=== PATIENT | female | born 1955 | race Caucasian/White ===

== ENCOUNTER 2016-07-30 10:34 | Emergency (ER) | payer OTHER ==
[~2016-07-30] VITALS: Ht 165.1 cm; Wt 104.3 kg
[~2016-07-30 10:34] MED LIST: ADVIL200 M2 PO; BAYER GENUINE325 MG PO; EPIPEN 2-P0.3 MG/0.3; LEVOTHYROXINE112 MCG PO; LOPRESSOR50 M1 PO; OMEPRAZOLE20 M2 PO; PAROXETINE HCL30 M1 PO; PLAVIX75 M1 PO; PRINIVIL5 M1 PO; WELCHOL625 MG PO
[2016-07-30 10:38] VITALS: BP 153/82
--- NOTE | 2016-07-30 11:21 | ED HAND/WRIST INJURY COMPLAINT ---
History of Present Illness General Chief Complaint: Hand or Wrist Injury Stated Complaint: L HAND INJURY S/P FALL YEST Source: patient Exam Limitations: no limitations Vital Signs & Intake/Output Vital Signs & Intake/Output Vital Signs Date Time Temp Pulse Resp B/P B/P Pulse O2 O2 Flow FiO2 Mean Ox Delivery Rate 07/30 1038 97.3 64 20 153/82 98 Room Air Allergies Coded Allergies: naproxen (Severe, RASH 07/30/16) cefuroxime (From CEFTIN) (RASH 07/30/16) Reconcile Medications Clopidogrel Bisulfate (Plavix) 75 MG TABLET 1 TAB PO DAILY BLOOD THINNER ( Reported) Colesevelam Hydrochloride (Welchol) 625 MG TABLET 3 TAB PO BID CHOLESTEROL ( Reported) Cyanocobalamin (Vitamin B-12) (B-12) 5,000 MCG TAB.RAPDIS 1 TAB PO DAILY VITAMIN SUPPORT (Reported) Epinephrine (Epipen 2-Ben) 0.3 MG/0.3 ML AUTO.INJCT 1 INJ DAILY NEEDED PRN ALLERGIES (Reported) Ibuprofen (Advil) 200 MG TABLET 1 TAB PO BID PAIN (Reported) Levothyroxine Sodium 112 MCG TABLET 1 TAB PO DAILY AC THYROID (Reported) Lisinopril (Prinivil) 5 MG TABLET 1 TAB PO DAILY BP (Reported) Losartan Potassium 25 MG TABLET 1 TAB PO DAILY HEART (Reported) Metoprolol Tartrate (Lopressor) 50 MG TABLET 1 TAB PO DAILY HEART (Reported) Omeprazole 20 MG CAPSULE.DR 1 CAP PO DAILY GI (Reported) Paroxetine HCl 30 MG TABLET 1 TAB PO DAILY MENTAL HEALTH (Reported) Triage Note: TRIPPED OVER CURB YESTERDAY FALLING ONTO LEFT HAND. PT DENIES HITTING HEAD, DENIES LOC Triage Nurses Notes Reviewed? yes Occurred: yesterday Duration: day(s): (1), constant, continues in ED Timing: recent history Injury Environment: home Severity: moderate, severe Pain/Injury Location: Left: Wrist, Hand. Method of Injury: fall No Modifying Factors: none HPI: 61-year-old female comes into emergency room for further evaluation of left hand and wrist pain. Patient fell yesterday when trying to step over handicap curve. Fell on her left hand. Denies any head trauma. Small bruise to her left lower leg but does not have any other injury on her body. No neck pain. No loss of consciousness. No anticoagulants. Denies any other associated symptoms. (TANA BELL) Past History Travel History Traveled to [place] past 21 day No Medical History Any Pertinent Medical History? 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 No (TANA BELL) Review of Systems Review of Systems Constitutional: Reports: no symptoms. EENTM: Reports: no symptoms. Respiratory: Reports: no symptoms. Cardiovascular: Reports: no symptoms. GI: Reports: no symptoms. Genitourinary: Reports: no symptoms. Musculoskeletal: Reports: see HPI. Skin: Reports: no symptoms. Neurological/Psychological: Reports: no symptoms. Hematologic/Endocrine: Reports: no symptoms. Immunologic/Allergic: Reports: no symptoms. All Other Systems: Reviewed and Negative (TANA BELL) Physical Exam Physical Exam General Appearance: well developed/nourished, mild distress Head: atraumatic Eyes: Bilateral: normal appearance. Ears, Nose, Throat: normal ENT inspection, hearing grossly normal Neck: normal inspection Cardiovascular/Respiratory: no respiratory distress Back: normal inspection Wrist Left: soft tissue tenderness, limited range of motion Hand Left: limited range of motion Hand Right: normal inspection Neurologic/Tendon: normal sensation, normal motor functions, normal tendon functions, responds to pain, no evidence tendon injury Skin: intact, normal color, warm/dry Lymphatic: no anterior cervical fantasma (TANA BELL) Progress Differential Diagnosis: abscess, cellulitis, contusion, dislocation, felon, fracture, paronychia, septic arthritis, sprain, tenosynovitis Plan of Care: Orders Procedure Date/time Status Durable Medical Equipment 07/30 1124 Active Diagnostic Imaging: Viewed by Me: Radiology Read. Discussed w/RAD: Radiology Read. Radiology Impression: EXAM TYPE: RAD - XRY-HAND, LEFT; XRY-WRIST COMPLETE-LEFT EXAMINATION: XR HAND, LEFT XR WRIST, LEFT CLINICAL INFORMATION: Trauma. Pain. Patient fell on arm, lateral portion. Rule out fracture COMPARISON: None TECHNIQUE: AP, lateral, and oblique views of the left hand and AP, lateral, oblique, and scaphoid views of the left wrist. FINDINGS: LEFT HAND: Bones are osteopenic. No acute fracture or malalignment. 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 Soft tissues are mildly swollen around the wrist. LEFT WRIST: Soft tissues are again noted the swollen at the dorsum of the wrist. No acute fractures are identified. Bones are osteopenic. Joint spaces appear well-preserved in the MCP and interphalangeal joints. IMPRESSION: Soft tissue swelling at the wrist. No acute fracture or malalignment. Osteopenia. DICTATED BY: JAYLAN SÁNCHEZ MD DATE/TIME DICTATED:07/30 ROPEMAN:VICTOR MANUEL (DAKOTAH OLIVIA,TANA) Departure Departure Disposition: HOME OR SELF CARE Condition: Stable Clinical Impression Primary Impression: Sprain of left hand Referrals: HOWIE MASON,GIULIANO SPENCER MD,TIARA Harris (PCP/Family) Additional Instructions: Ice. Rest. Ibuprofen. Follow-up with orthopedic doctor if not better in 3-5 days. Return if any other concerns. Please go over all results of today's visit with your primary care doctor. Contact your primary care doctor to let them know you were here in the emergency room. There may be nonspecific findings which may not be related to your visit today here in the emergency room but may require further evaluation and chronic monitoring by your primary care doctor. If you had a laceration today the chance of foreign body always remains. You should follow-up with your primary care doctor for recheck in 3-5 days for a wound check. If you had an x-ray done there is a chance that a fracture could have been missed on initial read and you should follow-up with your primary care doctor for repeat x-rays if symptoms persist. If your blood pressure was elevated here in the emergency room please have rechecked by her primary care doctor within the next 48 hours by your primary care doctor. If you were prescribed a narcotic here in the emergency room or any type of controlled substances you're not allowed to drive while taking this medication or operate any type of heavy machinery. Narcotics can make you feel lightheaded dizziness nausea and can cause constipation. You may need to moss picker a stool softener. Thank you for choosing [facility] emergency room. Please return to the emergency room immediately if you have any other concerns worsening of symptoms. Departure Forms: Customer Survey General Discharge Information (TANA BELL) PA/PETROLEUM ENGINEER Co-Sign Statement Statement: ED Attending supervision documentation- [] I saw and evaluated the patient. I have also reviewed all the pertinent lab results and diagnostic results. I agree with the findings and the plan of care as documented in the PA's/PETROLEUM ENGINEER's documentation. [X] I have reviewed the ED Record and agree with the PA's/PETROLEUM ENGINEER's documentation. [] Additions or exceptions (if any) to the PAs/PETROLEUM ENGINEER's note and plan are summarized below: [] (KI LACKEY DO) Procedures Splinting Location: left wrist/hand Manual Alignment Performed: No Pre-Made Type: velcro Splint: thumb spica, wrist Splint Applied By: splint applied by me Pre-Proc Neuro Vasc Exam: normal Post-Proc Neuro Vasc Exam: normal (TANA BELL)
[2016-07-30] MEDS ORDERED: B-125000 MC1 PO (11:27)
[2016-07-30] MEDS ORDERED: LOSARTAN POTASS25 M1 PO (11:29)
== END 2016-07-30 11:37 ==
LOC: ERH 10:34
DX: S63.92XA Sprain of unspecified part of left wrist and hand, initial encounter (principal); W18.09XA Striking against other object with subsequent fall, initial encounter; Y93.89 Activity, other specified; Y92.009 Unspecified place in unspecified non-institutional (private) residence as the place of occurrence of the external cause
CPT/HCPCS: 73110-LT; 73130-LT